=== PATIENT | female | born 1960 | race Caucasian/White ===

== ENCOUNTER 2016-05-04 17:53 | Emergency (ER) | payer OTHER ==
[~2016-05-04] VITALS: Ht 167.6 cm; Wt 57.6 kg
[2016-05-04 18:32] VITALS: Ht 167.6 cm; Wt 57.6 kg
[2016-05-04] MEDS ORDERED: IBUPROFEN 600 MG TAB PO ONE (20:00)
[2016-05-04] MEDS ORDERED: TRAM50TA2 PO (20:25)
[2016-05-04] MEDS ORDERED: AMOX1TAB10 PO (20:25)
[2016-05-04] MEDS ORDERED: PRED20TA PO (20:25)
--- NOTE | 2016-05-04 20:38 | ERD ---
ER Documentation Chief Complaint Date/Time DATE: 05/04/16 TIME: 20:29 Chief Complaint mouth pain x 1 month HPI 55-year-old otherwise healthy female presents to the complaining of mouth pain for the past month. Patient states the pain is intermittent 10 out of 10 sharp pain worse when brushing her teeth or eating. She states she is attempted to treat her pain with nightly baking soda and salt washes without relief. Patient is noted to wear dentures daily but states that recently had trouble applying the dentures due to swelling. Her dentures have irritated the area causing pain patient. Patient states the area bleeds when brushing her cleaning the area. Patient notes associated headache at night when she gets home from work and has worn her dentures all day. Patient denies any fever, nausea, vomiting, chills, abdominal pain, confusion, recent weight loss, increased fatigue, urinary symptoms. Patient does not have any history of cancer or diabetes. ROS All systems reviewed and are negative except as per history of present illness. Medications Home Meds Active Scripts Prednisone* (Prednisone*) 20 Mg Tab, 40 MG PO DAILY for 4 Days, TAB Prov:LIN CROWDER PA-C 05/04/16 Tramadol HCl (Tramadol HCl) 50 Mg Tablet, 50 MG PO Q6 Y for PAIN, #20 TAB Prov:LIN CROWDER PA-C 05/04/16 Amoxicillin/Potassium Clav (Amox-Clav 875-125 mg Tablet) 875-125 mg Tab, 1 TAB PO BID for 7 Days, #14 TAB Prov:LIN CROWDER PA-C 05/04/16 PMhx/Soc Medical and Surgical Hx: pt denies Medical Hx, pt denies Surgical Hx History of Surgery: No Anesthesia Reaction: No Hx Neurological Disorder: No Hx Respiratory Disorders: No Hx Cardiac Disorders: No Hx Psychiatric Problems: No Hx Alcohol Use: No Hx Substance Use: No Hx Tobacco Use: No Smoking Status: Never smoker Physical Exam Vitals Vital Signs Date Time Temp Pulse Resp B/P Pulse Ox O2 Delivery O2 Flow Rate FiO2 05/04/16 18:32 98.3 74 18 126/72 95 Physical Exam Const: Well-developed, well-nourished, no acute distress Head: Atraumatic Eyes: Normal Conjunctiva ENT: No angioedema. No sore or lesion surrounding external mouth 3 cm area of gingival hyperplasia noted on upper gums with one area of linear excoriation. No active bleeding, no erythema or discharge. Uvula midline. Oropharynx non-erythematous. No tonsillar swelling or exudate. No lesions or sores noted normal External Ears, Nose. Neck: Full range of motion..~ No meningismus. Resp: Clear to auscultation bilaterally Cardio: Regular rate and rhythm, no murmurs Abd: Soft, non tender, non distended. Normal bowel sounds Skin: No petechiae or rashes Back: No midline or flank tenderness Ext: No cyanosis, or edema Neur: Awake and alert Psych: Normal Mood and Affect Results 24 hrs Current Medications Medications (Trade) Dose Ordered Sig/Yaakov Route PRN Reason Start Time Stop Time Status Last Admin Dose Admin Ibuprofen (Motrin) 600 mg ONCE ONCE PO 05/04/16 20:00 05/04/16 20:01 DC 05/04/16 20:07 Procedures/MDM 55-year-old otherwise healthy female with history of denture use presents to the emergency department complaining of mouth pain intermittently 1 month. Clinical exam and history consistent with gingival hyperplasia of unknown etiology. At this time patient does not exhibit any signs or symptoms concerning for peritonsillar abscess, tooth infection, angioedema, severe bacterial infection, systemic illness, or sepsis. I discussed with the patient the importance of following up with a dentist as soon as possible for biopsy of the tissue to rule out possible cancer. Based on patient's history of present illness and physical examination the decision was made to discharge. The patient was re-evaluated after ED treatment and stabilizing measures, and symptoms have improved. There is no evidence of life threatening injuries or illnesses at this time. On re-examination, patient resting in no distress, stable vital signs, reports feeling better and safe for discharge with outpatient follow up with PMD in 1-2 days. Patient given return precautions. Departure Diagnosis: Primary Impression: Denture sore mouth Additional Impressions: Hyperplasia of gingiva Mouth pain Condition: Stable Referrals: [facility] ([facility]) Additional Instructions: Call your primary care doctor TOMORROW for an appointment during the next 1-2 days.See the doctor sooner or return here if your condition worsens before your appointment time. LIN CROWDER PA-C May 04, 2016 20:37
[2016-05-04 20:39] VITALS: BP 151/73; PULSE 70; RESP 18; TEMP 97.7
== END 2016-05-04 20:39 | disposition home or self-care (01) ==
LOC: FTE 17:53
DX: K13.79 Other lesions of oral mucosa (principal); K06.1 Gingival enlargement
CPT/HCPCS: Z7502; Z7610; 99284